=== PATIENT | female | born 1990 ===

== ENCOUNTER 2018-02-21 02:06 | Emergency (ER) | payer SELFPAY ==
[2018-02-21 02:16] VITALS: TEMP 98
[2018-02-21] MEDS ORDERED: Apap-Butalbital-Caffeine 325-50-40mg Tab PO STA (02:41)
[2018-02-21] MEDS ORDERED: Apap-Butalbital-Caffeine 325-50-40mg Tab ONE (03:19)
--- NOTE | 2018-02-21 03:43 | C.PDOC ---
History Of Present Illness Pt with PMHX of migraine, presents to ER with moderate frontal headache and several episodes of vomiting since earlier today. Pt states will usually take a tylenol at the onset of symptoms to avoid such prolonged exacerbation but did not take medication on time today. Pt denies fever, dizziness, weakness, URI sx , diarrhea, neck pain or abdominal pain Time Seen by Provider: 02/21/18 02:41 Chief Complaint (Nursing): Headache History/Exam Limitations: no limitations Onset/Duration Of Symptoms: Days (1) Current Symptoms Are (Timing): Still Present Severity: Moderate Pain Scale Rating Of: 7 Quality: Aching, Tightness Preceeding Symptoms: Known Migraine Symptoms Associated Symptoms: Photophobia, Nausea, Vomiting. denies: Blurred Vision, Extremity Weakness Recent travel outside of the [place]: No Past Medical History Vital Signs: Last Vital Signs Temp 98 F 02/21/18 02:09 Pulse 68 02/21/18 03:47 Resp 18 02/21/18 03:47 BP 108/67 02/21/18 03:47 Pulse Ox 96 02/21/18 03:49 - Medical History PMH: Migraine Family History: States: Unknown Family Hx - Social History Hx Alcohol Use: No Hx Substance Use: No - Immunization History Hx Tetanus Toxoid Vaccination: Yes Hx Influenza Vaccination: Yes Hx Pneumococcal Vaccination: No Review Of Systems Constitutional: Negative for: Fever Eyes: Negative for: Vision Change Cardiovascular: Negative for: Palpitations Respiratory: Negative for: Cough, Shortness of Breath Gastrointestinal: Positive for: Nausea, Vomiting. Negative for: Abdominal Pain , Diarrhea Musculoskeletal: Negative for: Neck Pain Neurological: Positive for: Headache. Negative for: Weakness, Numbness, Dizziness Physical Exam - Physical Exam Appears: Well, Non-toxic, No Acute Distress Skin: Normal Color Head: Atraumatic Eye(s): bilateral: Normal Inspection, PERRL, EOMI Oral Mucosa: Moist Neck: Normal, Supple Cardiovascular: Rhythm Regular Respiratory: Normal Breath Sounds, No Rhonchi Gastrointestinal/Abdominal: Normal Exam, Soft, No Tenderness, No Mass, No Distention Back: Normal Inspection Neurological/Psych: Oriented x3, Normal Speech, Normal Cognition, Normal Motor, Normal Sensation Gait: Steady ED Course And Treatment O2 Sat by Pulse Oximetry: 96 Pulse Ox Interpretation: Normal Progress Note: zofran ODT, toradol and fioricet ordered with moderste relief of sx. Pt remained stable in NAD, VSS. Advised migraine meds and PMD f/u. Return precautions discussed Reevaluation Time: 03:48 Reassessment Condition: Improved Disposition Counseled Patient/Family Regarding: Diagnosis, Need For Followup, Rx Given - Disposition Disposition: HOME/ ROUTINE Disposition Time: 03:48 Condition: STABLE Additional Instructions: Increase PO fluids Rest Take meds prescribed Return to ER f worse Prescriptions: Acetaminophen/Butalbital/Caf [Fioricet] 1 tab PO TID PRN #20 tab PRN Reason: Headache Ondansetron [Zofran Odt] 4 mg PO TID #10 odt Instructions: Migraine Headache (DC) Forms: [employer] (Tongan) - Clinical Impression Clinical Impression: Migraine headache
[2018-02-21 03:48] VITALS: BP 108/67; PULSE 68; RESP 18; O2SAT 96
== END 2018-02-21 04:19 | disposition home or self-care (01) ==
LOC: C.ER 02:06
DX: G43.909 Migraine, unspecified, not intractable, without status migrainosus (principal)
CPT/HCPCS: 96372; 99285; J1885